=== PATIENT | female | born 1990 | race Caucasian/White ===

== ENCOUNTER 2021-01-20 05:39 | Emergency (ER) | payer OTHER ==
[~2021-01-20 05:39] MED LIST: ZOFRAN4 MG/5 ML PO
[2021-01-20 06:42] LABS: HEMOGLOBIN 13.2 gm/dl (12.3-15.3); RED BLOOD COUNT 4.95 M/UL (4.00-5.10); WHITE BLOOD COUNT 6.2 K/UL (4.5-11.0)
[2021-01-20 07:16] LABS: BUN/CREATININE RATIO 18 (0-10)
== END 2021-01-20 08:42 | disposition home or self-care (01) ==
LOC: ER1 05:39
PROVIDERS: Family Medicine
DX: R00.2 Palpitations (principal); Z20.822 Contact with and (suspected) exposure to COVID-19; Z88.1 Allergy status to other antibiotic agents
CPT/HCPCS: 71045; 80053; 82550; 82553; 83874; 84439; 84443; 84484; 85025; 93005; 99285